=== PATIENT | female | born 1935 | race African-American/Black ===

== ENCOUNTER 2017-10-20 18:40 | Inpatient (IN) ==
[2017-10-20] MEDS ORDERED: 0.9 % Sodium Chloride 1,000 ML IVC ONE (18:59)
[2017-10-20 20:10] LABS: Basophils # 0.1 K/mcL (0.0-0.2); Basophils % 0.5 %; Eosinophils # 0.1 K/mcL (0.0-0.6); Immature Granulocytes % 0.5 % (0-4); Lymphocytes # 1.3 K/mcL (0.6-4.6); Lymphocytes % 8.9 %; Mean Corpuscular HGB Conc 33.3 g/dL (31.6-35.5); Mean Corpuscular Hemoglobin 31.8 pg (28.0-33.3); Mean Corpuscular Volume 95.3 fL (83.0-100.0); Mean Platelet Volume 9.1 fL (9.4-12.4); Monocytes # 0.8 K/mcL (0.0-1.3); Monocytes % 5.2 %; Neutrophils # 12.2 K/mcL (1.6-8.9); Platelet Count 208 K/mcL (140-400); Red Blood Count 4.72 M/mcL (3.82-4.97); Red Cell Distribution Width 13.3 % (11.5-14.5); Segmented Neutrophils % 83.9 %
[2017-10-20 20:17] LABS: INR 1.1; Prothrombin Time 12.3 Seconds (9.4-12.1)
--- NOTE | 2017-10-20 20:17 | Emergency Department Note ---
Disposition Clinical Impression: Fall Qualifiers: Encounter type: initial encounter Qualified Code(s): W19.XXXA - Unspecified fall, initial encounter Closed left hip fracture Qualifiers: Encounter type: initial encounter Qualified Code(s): S72.002A - Fracture of unspecified part of neck of left femur, initial encounter for closed fracture UTI (urinary tract infection) Qualifiers: Urinary tract infection type: site unspecified Hematuria presence: without hematuria Qualified Code(s): N39.0 - Urinary tract infection, site not specified Disposition: Admitted As Inpatient Condition: Good Referrals: Paradise Urena MD [Primary Care Provider] - Forms: ED Satisfaction Letter, Work/School Release Time of Disposition: 20:54 General Adult HPI - General Chief complaint: ED General Medical Stated complaint: shaking on right side. Time Seen by Provider: 10/20/17 18:45 Source: family, EMS Limitations: altered mental status, other (dementia) Nursing Notes Reviewed: Yes Vital Signs Reviewed: Yes - History of Present Illness HPI Narrative: 82 year old female who lives at home with her who also has dementia and she has severe dementia and is non ambulatory due to fall risk and is not on blood thinners. Daughter at [employer] who is the main historian states that she was found down and janis was only down for 3 hours 2p-5p and she has a histroy fo seizure. Her fall was from yesterda and since then she ferguson snot want to put pressure on her feet when they stand her and curls up legs and feet and doesnt want to walk or help move herself. PAtient also now has been starting with tremors on the right side and they are unsure if she is having recurrent seizures. Kathy benson and follows with Dr. Galeano neurology and has not missed any dose. Pain Scale: 0 - Related Data Home Medications Medication Instructions Recorded Confirmed Donepezil [Aricept] 10 mg PO BID #0 10/25/14 10/20/17 Omeprazole [PriLOSEC] 40 mg PO BID #0 10/25/14 10/20/17 Quetiapine Fumarate [Seroquel] 50 mg PO BID 10/25/14 10/20/17 Furosemide [Lasix] 20 mg PO DAILY 08/04/15 10/20/17 Phenytoin ER [Dilantin ER] 300 mg PO HS 10/20/17 10/20/17 Previous Rx's Medication Instructions Recorded Amlodipine [Norvasc] 10 mg PO DAILY #30 tablet 11/07/14 Allergies Allergy/AdvReac Type Severity Reaction Status Date / Time Penicillins Allergy Rash Verified 08/12/15 16:34 Constitutional: Denies: fever, chills, weakness, weight change Eyes: Denies: eye pain, eye discharge, vision change ENT ED: Denies: ear pain, throat pain, dental pain, hearing loss, epistaxis, congestion, dysphagia Cardiovascular: Denies: chest pain, palpitations, dyspnea on exertion, edema, syncope Respiratory: Denies: cough, dyspnea, wheezes, hemoptysis, stridor Gastrointestinal: Denies: abdominal pain, nausea, vomiting, diarrhea, constipation, hematemesis, melena, hematochezia Genitourinary: Denies: dysuria, frequency, hematuria, discharge Musculoskeletal: Reports: as per HPI. Denies: back pain, neck pain, arthralgia , myalgia Integumentary: Denies: rash, abrasion, lesions Neurological: Reports: other (tremors). Denies: headache, weakness, numbness, paresthesias, confusion, abnormal gait, vertigo Psychiatric: Denies: anxiety, depression, suicidal thoughts, homicidal thoughts , auditory hallucinations, visual hallucinations Endocrine: Denies: fatigue Hematological/Lymphatic: Denies: easy bleeding, easy bruising Allergic/Immunologic: Denies: facial swelling, urticaria Past Medical History - Past Medical History Medical history: Reports: dementia, hyperlipidemia, hypertension Surgical history: Reports: cholecystectomy, hysterectomy Psychiatric history: Reports: depression - Social History Smoking Status: Former smoker Smokeless Tobacco Status: No Alcohol use: Reports: none Drug use: Reports: none Physical Exam - General Limitations: altered mental status General appearance: in no apparent distress - Head Head exam: atraumatic, normocephalic, normal inspection - Eye Eye exam: Present: normal appearance, PERRL, EOMI - Expanded Eye Exam Pupils: Bilateral: reactive - ENT ENT exam: normal exam, normal oropharynx, mucous membranes moist - Expanded ENT Exam External ear exam: Present: normal external inspection Mouth exam: Present: normal external inspection Teeth exam: Present: normal inspection Throat exam: Present: normal inspection - Neck Neck exam: Present: normal inspection, full ROM, trachea midline - Chest Chest inspection: Present: normal inspection, symmetric chest wall rise - Respiratory Respiratory exam: Present: normal lung sounds bilaterally - Cardiovascular Cardiovascular exam: Present: regular rate, normal rhythm, normal heart sounds - Abdominal Exam Abdominal exam: Present: soft, Non-Tender. Absent: tenderness, distention, guarding, rebound, rigidity - Extremities Exam Extremities exam: Present: normal inspection, full ROM. Absent: tenderness, pedal edema - Expanded Upper Extremity Exam Shoulder exam: Present: normal inspection, full ROM Arm exam: Present: normal inspection, full ROM Elbow exam: Present: normal inspection, full ROM Forearm/Wrist exam: Present: normal inspection, full ROM Hand exam: Present: normal inspection, full ROM Vascular exam: Normal: capillary refill, radial pulse - Expanded Lower Extremity Exam Hip/Pelvis exam: Present: normal inspection, tenderness (left hip on palpation) Upper leg exam: Present: normal inspection, full ROM Knee exam: Present: normal inspection, full ROM Lower leg exam: Present: normal inspection, full ROM Ankle exam: Present: normal inspection, full ROM Foot/toe exam: Present: normal inspection, full ROM Neurovascular/Tendon exam: Absent: motor deficit, sensory deficit, tendon deficit - Back Exam Back exam: Present: normal inspection, full ROM. Absent: tenderness - Neurological Exam Neurological exam: Present: alert, other (neurological exam is difficult to assess secondary to dementia and inabiltiy to follows commands at baseline, although when left hip is palpated she curls up to with pain and states we are hurting her and the closes her eyes and starts to tremor again) - Expanded Neurological Exam Speech: Present: fluid speech Coma Scale Eye Opening: Spontaneous Coma Scale Motor Response: Obeys Commands Coma Scale Verbal Response: Oriented Coma Scale Total: 15 - Psychiatric Psychiatric exam: Present: normal affect, normal mood - Skin Skin exam: Present: warm, dry, intact, normal color Course Course Narrative: we will do focused trauma assessment with hip xr to rule out fracture. PAtient will be admitted to medicine. - Reevaluation(s) Reevaluation #1: updated patinet and family on results. WE will admit to medicine. Time: 20:54 - Consultations Consultation #1: discussed case with Dr. Casanova and he siobhan see in consult. Time: 20:53 Consultation #2: discussed case with Dr. Hunter and he will accept patinet for admission Time: 20:54 Vital Signs Temperature 98.8 F 10/20/17 18:48 Pulse Rate 85 10/20/17 18:48 Respiratory Rate 15 10/20/17 18:48 Blood Pressure 123/95 10/20/17 18:48 O2 Sat by Pulse Oximetry 94 10/20/17 18:48 Temperature 98.8 F 10/20/17 18:48 Pulse Rate 85 10/20/17 18:48 Respiratory Rate 15 10/20/17 18:48 Blood Pressure 123/95 10/20/17 18:48 O2 Sat by Pulse Oximetry 94 10/20/17 18:48 Oxygen Delivery Oxygen Delivery Room Air Medical Decision Making - Lab Data Result diagrams: 10/20/17 19:56 10/20/17 19:56 Lab Results 10/20/17 10/20/17 10/20/17 Range/Units 19:56 19:56 19:56 WBC 14.5 H (4.3-11.1) K/mcL RBC 4.72 (3.82-4.97) M/mcL Hgb 15.0 (11.5-15.4) g/dL Hct 45.0 H (35.3-44.9) % MCV 95.3 (83.0-100.0) fL MCH 31.8 (28.0-33.3) pg MCHC 33.3 (31.6-35.5) g/dL RDW 13.3 (11.5-14.5) % Plt Count 208 (140-400) K/mcL MPV 9.1 L (9.4-12.4) fL Immature Gran % 0.5 (0-4) % Seg Neutrophils % 83.9 % Lymphocytes % 8.9 % Monocytes % 5.2 % Eosinophils % 1.0 % Basophils % 0.5 % Neutrophils # 12.2 H (1.6-8.9) K/mcL Lymphocytes # 1.3 (0.6-4.6) K/mcL Monocytes # 0.8 (0.0-1.3) K/mcL Eosinophils # 0.1 (0.0-0.6) K/mcL Basophils # 0.1 (0.0-0.2) K/mcL PT 12.3 H (9.4-12.1) Seconds INR 1.1 Sodium (136-145) mEq/L Potassium (3.5-5.1) mEq/L Chloride (98-107) mEq/L Carbon Dioxide (23-29) mEq/L BUN (8-23) mg/dL Creatinine (0.60-1.20) mg/dL Est GFR ( Amer) (> 60) Est GFR (Non-Af Amer) (> 60) BUN/Creatinine Ratio (6-26) Glucose (70-105) mg/dL Calculated Osmolality (280-300) Calcium (8.6-10.3) mg/dL Phosphorus 2.9 (2.7-4.5) mg/dL Magnesium 2.2 (1.6-2.6) mg/dL Total Bilirubin (0.3-1.0) mg/dL Direct Bilirubin (0.0-0.2) mg/dL Indirect Bilirubin (0.0-1.2) mg/dL AST (13-39) Units/L ALT (7-52) Units/L Alkaline Phosphatase (34-104) Units/L Troponin I < 0.03 (< 0.04) ng/mL Serum Total Protein (6.4-8.9) g/dL Albumin (3.5-5.7) g/dL Globulin (2.4-3.5) g/dL Albumin/Globulin Ratio (1.1-2.2) Lipase 9 L (11-82) Units/L Urine Color (Yellow) Urine Clarity (Clear) Urine pH (5.0-8.0) pH Units Ur Specific [place] (1.010-1.025) Urine Protein (Neg-Trace) mg/dL Urine Glucose (UA) (Normal) mg/dL Urine Ketones (Negative) mg/dL Urine Blood (Negative) Urine Nitrite (Negative) Urine Bilirubin (Negative) Urine Urobilinogen (Normal) mg/dL Ur Leukocyte Esterase (Negative) Phenytoin (10.0-20.0) mcg/mL Ur Drug Screen Interp Ethyl Alcohol < 10 (Less than 10) mg/dL 10/20/17 10/20/17 10/20/17 Range/Units 19:56 20:44 20:44 WBC (4.3-11.1) K/mcL RBC (3.82-4.97) M/mcL Hgb (11.5-15.4) g/dL Hct (35.3-44.9) % MCV (83.0-100.0) fL MCH (28.0-33.3) pg MCHC (31.6-35.5) g/dL RDW (11.5-14.5) % Plt Count (140-400) K/mcL MPV (9.4-12.4) fL Immature Gran % (0-4) % Seg Neutrophils % % Lymphocytes % % Monocytes % % Eosinophils % % Basophils % % Neutrophils # (1.6-8.9) K/mcL Lymphocytes # (0.6-4.6) K/mcL Monocytes # (0.0-1.3) K/mcL Eosinophils # (0.0-0.6) K/mcL Basophils # (0.0-0.2) K/mcL PT (9.4-12.1) Seconds INR Sodium 144 (136-145) mEq/L Potassium 4.3 (3.5-5.1) mEq/L Chloride 108 H (98-107) mEq/L Carbon Dioxide 28 (23-29) mEq/L BUN 23 (8-23) mg/dL Creatinine 0.73 (0.60-1.20) mg/dL Est GFR ( Amer) > 60 (> 60) Est GFR (Non-Af Amer) > 60 (> 60) BUN/Creatinine Ratio 32 H (6-26) Glucose 143 H (70-105) mg/dL Calculated Osmolality 304 H (280-300) Calcium 9.3 (8.6-10.3) mg/dL Phosphorus (2.7-4.5) mg/dL Magnesium (1.6-2.6) mg/dL Total Bilirubin 0.7 (0.3-1.0) mg/dL Direct Bilirubin 0.1 (0.0-0.2) mg/dL Indirect Bilirubin 0.6 (0.0-1.2) mg/dL AST 31 (13-39) Units/L ALT 37 (7-52) Units/L Alkaline Phosphatase 200 H (34-104) Units/L Troponin I (< 0.04) ng/mL Serum Total Protein 7.2 (6.4-8.9) g/dL Albumin 4.1 (3.5-5.7) g/dL Globulin 3.1 (2.4-3.5) g/dL Albumin/Globulin Ratio 1.3 (1.1-2.2) Lipase (11-82) Units/L Urine Color Yellow (Yellow) Urine Clarity Cloudy A (Clear) Urine pH 6.0 (5.0-8.0) pH Units Ur Specific [place] 1.019 (1.010-1.025) Urine Protein 30 H (Neg-Trace) mg/dL Urine Glucose (UA) Normal (Normal) mg/dL Urine Ketones Trace H (Negative) mg/dL Urine Blood Negative (Negative) Urine Nitrite Negative (Negative) Urine Bilirubin Negative (Negative) Urine Urobilinogen Normal (Normal) mg/dL Ur Leukocyte Esterase Large H (Negative) Phenytoin 5.7 L (10.0-20.0) mcg/mL Ur Drug Screen Interp See Below Ethyl Alcohol (Less than 10) mg/dL
[2017-10-20 20:36] LABS: Alanine Aminotransferase 37 Units/L (7-52); Albumin 4.1 g/dL (3.5-5.7); Albumin/Globulin Ratio 1.3 (1.1-2.2); Alkaline Phosphatase 200 Units/L (34-104); Aspartate Amino Transferase 31 Units/L (13-39); BUN/Creatinine Ratio 32 (6-26); Bilirubin,Direct 0.1 mg/dL (0.0-0.2); Bilirubin,Indirect 0.6 mg/dL (0.0-1.2); Bilirubin,Total 0.7 mg/dL (0.3-1.0); Blood Urea Nitrogen 23 mg/dL (8-23); Calcium 9.3 mg/dL (8.6-10.3); Carbon Dioxide 28 mEq/L (23-29); Chloride 108 mEq/L (98-107); Globulin 3.1 g/dL (2.4-3.5); Glucose 143 mg/dL (70-105); Osmolality,Calculated 304 (280-300); Phenytoin (Dilantin) 5.7 mcg/mL (10.0-20.0); Potassium 4.3 mEq/L (3.5-5.1); Sodium 144 mEq/L (136-145); Total Protein 7.2 g/dL (6.4-8.9); eGFR For Non-African Americans > 60 (> 60)
[2017-10-20 20:38] LABS: Ethanol < 10 mg/dL (Less than 10); Lipase 9 Units/L (11-82); Magnesium 2.2 mg/dL (1.6-2.6); Phosphorous 2.9 mg/dL (2.7-4.5)
[2017-10-20 20:45] LABS: Troponin I < 0.03 ng/mL (< 0.04)
[2017-10-20] MEDS ORDERED: *HR* LORazepam 2 MG/ML VIAL IVP ONE (20:50)
[2017-10-20 20:55] LABS: Bilirubin,Urine Negative (Negative); Blood,Urine Negative (Negative); Clarity,Urine Cloudy (Clear); Color,Urine Yellow (Yellow); Glucose,Urine (UA) Normal (Normal); Ketones,Urine Trace mg/dL (Negative); Leukocyte Esterase,Urine Large (Negative); Nitrite,Urine Negative (Negative); Protein,Urine 30 mg/dL (Neg-Trace); Specific Gravity,Urine 1.019 (1.010-1.025); Urobilinogen,Urine Normal (Normal)
[2017-10-20 20:58] LABS: Bacteria,Urine Many per hpf (None-Few); Hyaline Casts,Urine None Seen per lpf (None-Few); RBC,Urine 0-3 per hpf (0-3); Squamous Epithelial Cell,Urine Many per lpf (None-Few); WBC,Urine TNTC per hpf (0-3)
[2017-10-20] MEDS ORDERED: Levofloxacin 750 MG/150 ML 750 MG/150 ML BAG IVPB ONE (21:04)
[2017-10-20 21:15] LABS: Amphetamine Screen,Urine Negative ng/mL (Cutoff=1000); Barbiturate Screen,Urine Negative ng/mL (Cutoff=200); Benzodiazepines Screen,Urine Negative ng/mL (Cutoff=200); Cannabinoid Screen,Urine Negative ng/mL (Cutoff = 50); Cocaine Screen,Urine Negative ng/mL (Cutoff= 300); Opiate Screen,Urine Negative ng/mL (Cutoff=300); Phencyclidine Screen,Urine Negative ng/mL (Cutoff=25)
[2017-10-21] MEDS ORDERED: Naloxone 0.4 MG/ML INJ IVP PRN (04:13)
[2017-10-21] MEDS ORDERED: Furosemide 20 MG TABLET PO PRN (04:18)
[2017-10-21] MEDS ORDERED: OXYCODONE Oral CONC 10 MG/0.5 ML ORAL.SYG SL PRN (04:21)
--- NOTE | 2017-10-21 04:28 | Internal Med History&Physical ---
Date of Encounter: 10/21/17 Time of Encounter: 02:45 Internal Medicine - H&P: HPI Chief complaint: Left acute displaced subcapital femoral neck fracture Admitted From: Home Plans for Post Hospital Care: Home History of present illness: Ms. Blevins is a 82 year old female Patient answering a few questions, has baseline dementia and family not available at bedside during my evaluation. History obtained from previous records. Patient and her live at home both have dementia. Recently patient was found down and likely down for about 3 hours. Patient does have a history of seizures. This fall occurred the day previous to admission and since the fall patient has been unwilling to put weight on her left leg with standing and instead curls her leg up and refuses to walk or help move herself. Patient is also had tremors on the right side and family was not sure if this was seizure activity. She takes Dilantin and is apparently not missed any doses. She is brought to the emergency room for further management. In the emergency room hip x-ray showed acute displaced subcapital left femoral neck fracture. Head CT showed no acute intracranial abnormality, chest x-ray showed no abnormalities. Lab work showed a white count of 14.5, and urinalysis showed large leukocyte esterase with 30 of protein but no blood and negative nitrites. Urine bacteria was many. Dr. Casanova of orthopedic surgery was called from the emergency room, and will see the patient in the morning. Patient is to be admitted for further management of her left femoral neck fracture. Past Med Surg Social Fam HX - Past Medical History Medical history: dementia, hyperlipidemia, hypertension, seizures Additional medical history: UTI, pneumonia Psychiatric history: depression - Past Surgical History Surgical History: cholecystectomy, hysterectomy - Social History Smoking Status: Former smoker Smokeless Tobacco Status: No Alcohol use: none Drug use: none - Family History Father Age at : 45 Cause of : heart attack Hx Family Cardiac Disorders: Yes (heart attack) Internal Medicine - H&P: Meds Donepezil [Aricept] 10 mg PO BID #0 10/25/14 [History] Omeprazole [PriLOSEC] 40 mg PO BID #0 10/25/14 [History] Quetiapine Fumarate [Seroquel] 50 mg PO BID 10/25/14 [History] Amlodipine [Norvasc] 10 mg PO DAILY #30 tablet 11/07/14 [Rx] Furosemide [Lasix] 20 mg PO DAILY PRN 08/04/15 [History] Phenytoin ER [Dilantin ER] 300 mg PO HS 10/20/17 [History] 3 Allergy/AdvReac Type Severity Reaction Status Date / Time Penicillins Allergy Rash Verified 08/12/15 16:34 All Systems PM: A 10-system review of systems was performed and is negative for pertinent findings except as documented above in the HPI. - Constitutional Vitals: Temp Pulse Resp BP Pulse Ox 99.1 F 100 18 143/85 98 10/21/17 02:27 10/21/17 02:27 10/21/17 02:27 10/21/17 02:27 10/21/17 02:27 General appearance: Present: no acute distress. Absent: cooperative, answers questions appropriately Exam: Patient did not answer questions, and was very sleepy for exam. Did follow some commands such as squeezing fingers and open eyes - Head Head exam: Present: normal inspection - Eye Eye exam: Present: normal appearance - Respiratory Respiratory exam: Present: CTAB. Absent: chest wall tenderness, respiratory distress, wheezes - Cardiovascular Cardiovascular exam: Present: RRR. Absent: diastolic murmur, systolic murmur - GI/Abdominal GI/Abdominal exam: Present: normal bowel sounds, soft. Absent: tenderness - Extremities Exam Extremities exam: Present: warm, radial pulses palpable and symmetrical. Absent : tenderness Additional comments: No apparent tenderness even with palpation over the left hip - Neurological Exam Neurological exam: Present: altered. Absent: alert, oriented X3 - Skin Skin exam: Present: dry, normal color, warm Internal Med - H&P Results - Labs CBC & Chem 7: 10/20/17 19:56 10/20/17 19:56 - Assessment and plan (1) Closed left hip fracture Current Visit: Yes Status: Acute Assessment and plan: As seen on hip x-ray patient has an acute displaced subcapital left femoral neck fracture. Orthopedic surgery called from the emergency room and will consult on patient in the morning Nothing by mouth after midnight Likely surgery in the morning A.m. labs Type and screen PT/INR EKG in the morning Qualifiers: Encounter type: initial encounter Qualified Code(s): S72.002A - Fracture of unspecified part of neck of left femur, initial encounter for closed fracture (2) Fall Current Visit: Yes Status: Acute Assessment and plan: Unclear what caused the patient to fall, she has a history of seizures and has been found to have a urinary tract infection. She is a history of dementia as well. Fall precautions Sitter at bedside Qualifiers: Encounter type: initial encounter Qualified Code(s): W19.XXXA - Unspecified fall, initial encounter (3) UTI (urinary tract infection) Current Visit: No Status: Acute Assessment and plan: Patient's urinalysis showed large leukocyte esterase, with many bacteria and 30 of protein. She was given a dose of Levaquin in the emergency room. Continue antibiotic therapy Follow-up urine culture Qualifiers: Urinary tract infection type: acute cystitis Hematuria presence: without hematuria Qualified Code(s): N30.00 - Acute cystitis without hematuria (4) Dementia Current Visit: No Status: Acute Assessment and plan: Chronic continue home medications. Qualifiers: Qualified Code(s): F03.90 - Unspecified dementia without behavioral disturbance (5) DVT prophylaxis Current Visit: No Status: Acute Assessment and plan: SCDs - Time Spent With Patient Total time spent is greater than 50% in coordination of care (as documented) at patient's floor/unit and/or counseling patient: Greater than 35 minutes
[2017-10-21 06:44] LABS: Hematocrit 41.3 % (35.3-44.9); Hemoglobin 13.6 g/dL (11.5-15.4); Mean Corpuscular HGB Conc 32.9 g/dL (31.6-35.5); Mean Corpuscular Hemoglobin 31.3 pg (28.0-33.3); Mean Corpuscular Volume 95.2 fL (83.0-100.0); Mean Platelet Volume 10.1 fL (9.4-12.4); Platelet Count 201 K/mcL (140-400); Red Blood Count 4.34 M/mcL (3.82-4.97); Red Cell Distribution Width 13.4 % (11.5-14.5)
[2017-10-21 06:46] LABS: INR 1.1; Prothrombin Time 12.3 Seconds (9.4-12.1)
[2017-10-21 06:58] LABS: BUN/Creatinine Ratio 32 (6-26); Blood Urea Nitrogen 17 mg/dL (8-23); Calcium 8.9 mg/dL (8.6-10.3); Carbon Dioxide 24 mEq/L (23-29); Chloride 107 mEq/L (98-107); Glucose 98 mg/dL (70-105); Osmolality,Calculated 294 (280-300); Potassium 3.8 mEq/L (3.5-5.1); Sodium 141 mEq/L (136-145); eGFR For Non-African Americans > 60 (> 60)
[2017-10-21] MEDS: amLODIPine 5 MG TABLET PO SCH (08:38)
--- NOTE | 2017-10-21 09:02 | Orthopedic Consult Note ---
Date of Encounter: 10/21/17 Time of Encounter: 08:20 Assessment and Plan (1) Closed left hip fracture Current Visit: Yes Status: Acute Xrays showed acute, displaced subcapital left femoral neck fracture. Discussed case with Dr. Casanova. This fracture would typically require surgical intervention (hemiarthroplasty) however this patient has dementia and is nonambulatory. Per documentation, the daughter that was with her last night did not want to proceed with surgery. Family is not present in room this morning. Will try to contact later today to review r/b/a and confirm they do not want surgery. Will plan for no surgical intervention at this time. Recommend bed to chair transfers. NWB. Ice to left hip as needed. UPDATE 15:30- spoke with daughter Dang Burks about the r/b/a of surgery. Besides being a poor surgical candidate there would be a high risk of chronic hip dislocations if proceed with surgery. The biggest benefit of the surgery would be to improve pain and comfort. She expressed understanding and all questions were answered. Hospitalist was also bedside and states plan is to get hospice on board which will cover the pain control. Daughter in agreement to NOT proceed with surgery. Orthopedics will sign off at this time but please call with any future concerns. Qualifiers: Qualified Code(s): S72.002A - Fracture of unspecified part of neck of left femur, initial encounter for closed fracture History of Present Illness Chief complaint: left hip pain HPI: Ms. Blevins is a 82 year old female who presented to the ER yesterday with apparent left hip pain. She does have h/o dementia and seizures. She was found on the floor yesterday, fall was unwitnessed. Patient is typically nonambulatory. Family was not present for exam this morning, history comes from nurse and previous documentation. Past Med Surg Social Fam HX - Past Medical History Medical history: dementia, hyperlipidemia, hypertension, seizures Additional medical history: UTI, pneumonia Psychiatric history: depression - Past Surgical History Surgical History: cholecystectomy, hysterectomy - Social History Smoking Status: Former smoker Smokeless Tobacco Status: No Alcohol use: none Drug use: none - Family History Father Age at : 45 Cause of : heart attack Hx Family Cardiac Disorders: Yes (heart attack) Medications and Allergies Donepezil [Aricept] 10 mg PO BID #0 10/25/14 [History] Omeprazole [PriLOSEC] 40 mg PO BID #0 10/25/14 [History] Quetiapine Fumarate [Seroquel] 50 mg PO BID 10/25/14 [History] Amlodipine [Norvasc] 10 mg PO DAILY #30 tablet 11/07/14 [Rx] Furosemide [Lasix] 20 mg PO DAILY PRN 08/04/15 [History] Phenytoin ER [Dilantin ER] 300 mg PO HS 10/20/17 [History] 3 Allergy/AdvReac Type Severity Reaction Status Date / Time Penicillins Allergy Rash Verified 08/12/15 16:34 ROS unobtainable: due to mental status All Systems Reviewed: The remainder of the systems were reviewed and are negative Physical Exam - Constitutional Vitals: Temp Pulse Resp BP Pulse Ox 98.3 F 82 15 123/87 100 10/21/17 06:43 10/21/17 06:43 10/21/17 06:43 10/21/17 06:43 10/21/17 06:43 - Hip left Tenderness with palpation: lateral (LLE held in flexed position, pain response to gentle palpation of anterior and lateral left hip, patient using hand to rub over hip with moans. no visible ecchymosis, erythema or open wounds or lesions. ROM restricted. patient unable to follow commands. ) Results - Labs Result Diagrams: 10/21/17 05:24 10/21/17 05:24 Labs: Abnormal lab results WBC 15.2 K/mcL (4.3-11.1) H 10/21/17 05:24 Neutrophils # 12.2 K/mcL (1.6-8.9) H 10/20/17 19:56 PT 12.3 Seconds (9.4-12.1) H 10/21/17 05:24 Creatinine 0.53 mg/dL (0.60-1.20) L 10/21/17 05:24 BUN/Creatinine Ratio 32 (6-26) H 10/21/17 05:24 Alkaline Phosphatase 200 Units/L (34-104) H 10/20/17 19:56 Lipase 9 Units/L (11-82) L 10/20/17 19:56 Urine Clarity Cloudy (Clear) A 10/20/17 20:44 Urine Protein 30 mg/dL (Neg-Trace) H 10/20/17 20:44 Urine Ketones Trace mg/dL (Negative) H 10/20/17 20:44 Ur Leukocyte Esterase Large (Negative) H 10/20/17 20:44 Urine Microscopic WBC TNTC per hpf (0-3) H 10/20/17 20:44 Ur Squamous Epith Cells Many per lpf (None-Few) H 10/20/17 20:44 Urine Bacteria Many per hpf (None-Few) H 10/20/17 20:44 Phenytoin 5.7 mcg/mL (10.0-20.0) L 10/20/17 19:56 H & H 10/21/17 Range/Units 05:24 Hgb 13.6 (11.5-15.4) g/dL Hct 41.3 (35.3-44.9) % All other labs normal. - Diagnostic results Hip x-ray: report reviewed, image reviewed Consult Discharge Plan - Plan Referrals: Paradise Urena MD [Primary Care Provider] - - Attending Attestation Case and plan of care discussed with supervising physician who was available for all aspects of care.
--- NOTE | 2017-10-21 15:00 | Internal Med Progress Note ---
<Niya Caba - Last Filed: 10/21/17 15:30> Hospitalist Progress Note - Encounter Date of Encounter: 10/21/17 Time of Encounter: 14:58 - Subjective Interval History: Ms. Blevins is an 82 y/o female with PMH of dementia and seizures presents to [facility] for a fall and left hip fracture. Today patient is arousable, not alert or oriented, mumbles inappropriately. Patient is not on any blood thinners. Altered so could not get appropriate ROS. Per recent neurology visit patient is chair bound, has advancing dementia and stable seizures. - Exam Vitals: Temp Pulse Resp BP Pulse Ox 99.2 F 88 14 131/84 94 10/21/17 11:20 10/21/17 11:20 10/21/17 11:20 10/21/17 11:20 10/21/17 11:20 Exam: GEN: Ill appearing thin female in no acute distress on room air, A&Ox0, arousable, will open eyes and mumble words. HEENT: atraumatic CV: RRR, no murmurs, no JVD RESP: CTAB, no wheezes, rales, ABD: palpation does not elicit pain, no organomegaly : fagan present MSK: Hip does not elicit pain to palpation VASC: No edema, radial and dorsalis pedis pulses 2/4 - Assessment and Plan (1) Closed left hip fracture Current Visit: Yes Status: Acute Assessment and Plan: Ortho consulted and advise that femoral neck fracture would typically require surgical intervention but she is not a good candidate. Family declined surgery as detailed in goals of care. (2) Fall Current Visit: Yes Status: Acute Assessment and Plan: Unwitnessed fall of unknown etiology from chair or standing - considered EEG but after speaking with family they declined - minimum of 3 hours before found - thus ordered CK-MB - EKG - wnl (3) UTI (urinary tract infection) Current Visit: Yes Status: Acute Assessment and Plan: possible precipitating factor of fall- UA shows many WBC, bacteria, trace ketones and postive esterase but also many squamous cells - continue Levaquin (4) Advanced dementia Current Visit: No Status: Chronic Assessment and Plan: Dementia type unclear but baseline known to be chair bound and verbal but not communicative (5) Goals of care, counseling/discussion Current Visit: Yes Status: Acute Assessment and Plan: I spoke with patients daughters' Dang Burks and Cedrick Blevins (second by phone) as there is no designated POA- they are in agreement with consulting palliative or hospice care. They state that she needs "full care" and would like to think about hospice in home or care home. They agree that code status is DNR CCA DNI. They do not wish to have surgery. They decline an EEG and wish to follow but with her neurologist as outpatient. Ortho was part of conversation and agrees. - Palliative care consulted and discussed with Erum Tavera - they will see DVT Prophylaxis: Lovenox SQ - Summary of Assessment and Plan Summary of Assessment and Plan: Pursuing palliative care - Time Spent with Patient Total time spent is greater than 50% in coordination of care (as documented) at patient's floor/unit and/or counseling patient: Greater than 35 minutes Plan of Care Discussed with: family Internal Medicine: Result - Labs CBC & Chem 7: 10/21/17 05:24 10/21/17 05:24 Labs: Short CBC 10/21/17 Range/Units 05:24 WBC 15.2 H (4.3-11.1) K/mcL Hgb 13.6 (11.5-15.4) g/dL Hct 41.3 (35.3-44.9) % Plt Count 201 (140-400) K/mcL BMP 10/21/17 05:24 Sodium 141 Potassium 3.8 Chloride 107 Carbon Dioxide 24 BUN 17 Creatinine 0.53 L Glucose 98 Calcium 8.9 - ABG Interpretation ABG results: PT/INR, D-dimer PT 12.3 Seconds (9.4-12.1) H 10/21/17 05:24 - VTE Documentation of Mechanical Device: Intermittent pneumatic compression device Consult Discharge Plan - Plan Referrals: Paradise Urena MD [Primary Care Provider] - <Driss Delgado - Last Filed: 10/21/17 17:37> Hospitalist Progress Note - Encounter Date of Encounter: 10/21/17 - Exam Vitals: Temp Pulse Resp BP Pulse Ox 99.5 F 95 16 134/68 95 10/21/17 15:39 10/21/17 15:39 10/21/17 15:39 10/21/17 15:39 10/21/17 15:39 - Time Spent with Patient Total time spent is greater than 50% in coordination of care (as documented) at patient's floor/unit and/or counseling patient: Internal Medicine: Result - Labs CBC & Chem 7: 10/21/17 05:24 10/21/17 05:24 - ABG Interpretation ABG results: PT/INR, D-dimer PT 12.3 Seconds (9.4-12.1) H 10/21/17 05:24 - Attending Attestation I examined this patient and my medical decision-making was reviewed with the Resident Physician Dr. Caba. I agree with the documented findings, disposition and treatment plan as described except to the extent set forth below. Ms. Blevins is a 82 year old female with PMH of dementia, hyperlipidemia, hypertension, seizures pt was brought into ER by family stating pt had a fall at home and down for [address] showed no acute intracranial abnormality, chest x-ray showed no abnormalities. Hip x-ray showed acute displaced subcapital left femoral neck fracture. Now pt resting comfortably. She is sleepy and demented Gen: Sleepy Chest: Diminished BS Heart: S1S2+ Ext: moderate tenderness in left, no swelling / no laceration a/p 1. Acute fall with acute displaced subcapital left femoral neck fracture Orhto on board family do not wanted to proceed with surgery palliative care consulted 2. ?? acute on chronic seizure will ask family about further work up - EEG cont home meds for now 3. Advanced dementia on Haldol PRN for agitation <Niya Caba - Last Filed: 10/21/17 15:30> (1) Closed left hip fracture Qualifiers: Encounter type: initial encounter Qualified Code(s): S72.002A - Fracture of unspecified part of neck of left femur, initial encounter for closed fracture (2) Fall Qualifiers: Encounter type: initial encounter Qualified Code(s): W19.XXXA - Unspecified fall, initial encounter (3) UTI (urinary tract infection) Qualifiers: Urinary tract infection type: site unspecified Hematuria presence: without hematuria Qualified Code(s): N39.0 - Urinary tract infection, site not specified
--- NOTE | 2017-10-21 17:03 | Palliative - Consult Note ---
Date of Encounter: 10/21/17 Time of Encounter: 17:00 - Assessment and Plan (1) Left hip pain Current Visit: Yes Status: Acute Assessment and plan: Continue Oxycodone as ordered and monitor. Does not appear she has had this since admission. (2) Constipation Current Visit: Yes Status: Acute Assessment and plan: Will begin on [place] r/t increased immobility and likely need for opioids for comfort. Monitor BM's Qualifiers: Constipation type: unspecified constipation type Qualified Code(s): K59.00 - Constipation, unspecified (3) Closed left hip fracture Current Visit: Yes Status: Acute Assessment and plan: Orthopedic notes reviewed. Not good surgical candidate. Qualifiers: Encounter type: initial encounter Qualified Code(s): S72.002A - Fracture of unspecified part of neck of left femur, initial encounter for closed fracture (4) Goals of care, counseling/discussion Current Visit: Yes Status: Acute Assessment and plan: Met with daughter Julianna. Patient has never completed HCPOA and also has dementia. Other daughter Cedrick resides in [place]. Julianna desires hospice care enrollment upon discharge - however, there is no payment source for ECF, and there is not enough care providers in the home at this point. They have never applied for Medicaid and not sure if pt would qualify. Julianna discussed possible back home with current home health, but I stated concern over her increased symptom management and other support hospice could provide in the home. Julianna to speak with her sister this weekend to discuss these options. Julianna working Tuesday until afternoon - we will meet with her when she can arrive. Code status currently DNR/DNI - expect transition to comfort care only upon discharge. Called and discussed case with Dr. Caba. Palliative-CN HPI - Data of Consult Consult date: 10/21/17 Requesting Physician: Genaro Hunter MD Primary Care Provider: Paradise Urena MD - Consult Narrative History of present illness: Ms. Blevins is a 82 year old female with a history of dementia who presented after fall at home with left hip pain. She resides with , who also has dementia, and has daughter close by who works. She has [employer] in place. Daughter at bedside states she has been in good health except for the dementia. X-ray on admission demonstrated Acute displaced subcapital left femoral neck fracture and osteoarthritis of bilateral hips. Information obtained from chart review and daughter at bedside. Upon my visit, she is sleeping soundly and does not awaken during my assessment , except for grimacing when I repositioned leg. Sitter at bedside. Resp appear easy and regular. Daughter states that she has appeared comfortable. CC: Genaro Hunter MD Past Med Surg Social Fam HX - Past Medical History Medical history: dementia, hyperlipidemia, hypertension, seizures Additional medical history: UTI, pneumonia Psychiatric history: depression - Past Surgical History Surgical History: cholecystectomy, hysterectomy - Social History Smoking Status: Former smoker Smokeless Tobacco Status: No Alcohol use: none Drug use: none - Family History Father Age at : 45 Cause of : heart attack Hx Family Cardiac Disorders: Yes (heart attack) Medications and Allergies Donepezil [Aricept] 10 mg PO BID #0 10/25/14 [History] Omeprazole [PriLOSEC] 40 mg PO BID #0 10/25/14 [History] Quetiapine Fumarate [Seroquel] 50 mg PO BID 10/25/14 [History] Amlodipine [Norvasc] 10 mg PO DAILY #30 tablet 11/07/14 [Rx] Furosemide [Lasix] 20 mg PO DAILY PRN 08/04/15 [History] Phenytoin ER [Dilantin ER] 300 mg PO HS 10/20/17 [History] 3 Allergy/AdvReac Type Severity Reaction Status Date / Time Penicillins Allergy Rash Verified 08/12/15 16:34 ROS unobtainable: due to mental status Palliative Care-Exam - Constitutional Vitals: Temp Pulse Resp BP Pulse Ox 99.5 F 95 16 134/68 95 10/21/17 15:39 10/21/17 15:39 10/21/17 15:39 10/21/17 15:39 10/21/17 15:39 General appearance: Present: no acute distress - Head Head Exam: Present: normal inspection, normocephalic - Eye Eye exam: Present: normal appearance, PERRL - Respiratory Respiratory exam: Present: decreased breath sounds, CTAB Additional comments: Shallow inspiratory effort - Cardiovascular Cardiovascular exam: Present: +S1, +S2 - GI/Abdominal Exam GI/Abdominal exam: Present: normal bowel sounds, soft - Extremities Exam Extremities exam: Present: normal capillary refill - Neurological Exam Additional comments: Patient sleeping sounding - slept through assessment - Skin Skin exam: Present: dry, normal color, warm Internal Medicine - CN: Reslt - Labs CBC & Chem 7: 10/21/17 05:24 10/21/17 05:24 - ABG Interpretation ABG results: PT/INR, D-dimer PT 12.3 Seconds (9.4-12.1) H 10/21/17 05:24 Consult Discharge Plan - Plan Referrals: Paradise Urena MD [Primary Care Provider] - Palliative Quality Palliative Quality: Screen for Code Status: Yes, Screen for Goals of Care: Yes, Screen for Pain: Yes, If Pain Regimen Started, Initiate Bowel Regimen: NA, Screen for Nausea/Vomitting: Yes Code Status: 10/21/17 15:37 CODE [Resuscitation Status: Active] [RES] Routine Comment: per alyssa Burks & Cedrick Blevins Resuscitation Status: [id number]
[2017-10-21] MEDS: *HR* Enoxaparin 40 MG/0.4 ML SYRINGE SQ SCH (17:29)
--- NOTE | 2017-10-21 17:38 | Electrocardiograph Report ---
[place] [address] Test Date: 2017-10-21 Pat Name: Gemini Blevins Department: 114 Room: [facility] Gender: F Account Manager Sales Representative: JOSE MANUEL : 1935 Requested By: Abner Damon Order Number: [id number] Reading MD: Brea Yanez Measurements Intervals [place] Rate: 84 P: 78 WY: 188 QRS: 5 QRSD: 89 T: 61 QT: 331 QTc: 371 Interpretive Statements SINUS RHYTHM PROBABLE SEPTAL MYOCARDIAL INFARCTION, PROBABLY OLD Electronically Signed On 10-21-2017 17:37:10 EDT by Brea Yanez
[2017-10-21] MEDS: Sennosides/Docusate Sodium TABLET PO SCH (20:26)
[2017-10-21] MEDS: Levofloxacin 750 MG/150 ML 750 MG/150 ML BAG IVPB SCH (20:28)
[2017-10-21] MEDS: Phenytoin Oral Susp 100 MG/4 ML UDC PO SCH (23:29)
[2017-10-22 07:45] LABS: Basophils # 0.1 K/mcL (0.0-0.2); Basophils % 0.7 %; Eosinophils # 0.4 K/mcL (0.0-0.6); Eosinophils % 3.3 %; Hematocrit 38.5 % (35.3-44.9); Hemoglobin 12.9 g/dL (11.5-15.4); Immature Granulocytes % 0.6 % (0-4); Immature Platelets 2.4 % (1.1-6.1); Lymphocytes # 1.5 K/mcL (0.6-4.6); Lymphocytes % 11.9 %; Mean Corpuscular HGB Conc 33.5 g/dL (31.6-35.5); Mean Corpuscular Hemoglobin 31.2 pg (28.0-33.3); Mean Platelet Volume 9.9 fL (9.4-12.4); Monocytes % 7.4 %; Neutrophils # 9.8 K/mcL (1.6-8.9); Platelet Count 209 K/mcL (140-400); Red Blood Count 4.14 M/mcL (3.82-4.97); Red Cell Distribution Width 13.5 % (11.5-14.5); Segmented Neutrophils % 76.1 %
[2017-10-22 08:06] LABS: BUN/Creatinine Ratio 34 (6-26); Blood Urea Nitrogen 19 mg/dL (8-23); Calcium 8.5 mg/dL (8.6-10.3); Carbon Dioxide 24 mEq/L (23-29); Chloride 108 mEq/L (98-107); Glucose 96 mg/dL (70-105); Osmolality,Calculated 292 (280-300); Potassium 3.5 mEq/L (3.5-5.1); Sodium 140 mEq/L (136-145); eGFR For Non-African Americans > 60 (> 60)
[2017-10-22] MEDS: amLODIPine 5 MG TABLET PO SCH (08:08)
[2017-10-22] MEDS: Sennosides/Docusate Sodium TABLET PO SCH (08:08)
--- NOTE | 2017-10-22 09:33 | Internal Med Progress Note ---
<Niya Caba - Last Filed: 10/22/17 11:38> Hospitalist Progress Note - Encounter Date of Encounter: 10/22/17 Time of Encounter: 11:38 - Subjective Interval History: Ms. Blevins is an 82 y/o female with PMH of dementia and seizures presents to [facility] for a fall and left hip fracture. Patient remains arousable but not alert or oriented, She mumbles inappropriately. Verbal but not communicative. Per aid she appears to be in pain when moved for washing. Bed bound but sitting up and eating well. Altered so could not get appropriate ROS. - Exam Vitals: Temp Pulse Resp BP Pulse Ox 98.0 F 89 15 153/90 95 10/22/17 08:41 10/22/17 08:41 10/22/17 08:41 10/22/17 08:41 10/22/17 08:41 Exam: GEN: Ill appearing thin female in no acute distress on room air, A&Ox0, arousable, will open eyes and mumble words. HEENT: atraumatic CV: RRR, no murmurs, no JVD RESP: CTAB, no wheezes, rales, ABD: palpation does not elicit pain, no organomegaly : fagan present VASC: No edema, radial and dorsalis pedis pulses 2/4 - Assessment and Plan (1) Closed left hip fracture Current Visit: Yes Status: Acute Assessment and Plan: Ortho consulted and advise that femoral neck fracture would typically require surgical intervention but she is not a good candidate. Family declined surgery and palliative consulted (2) Fall Current Visit: Yes Status: Acute Assessment and Plan: Unwitnessed fall of unknown etiology from chair or standing - CT head in ED no acute abnormality - no apparent injures other than hip fracture - EEG - family declined - minimum of 3 hours before found - Creatinine kinase elevated at 378 but not high enough to diagnostic of rhabdomyolysis - urine is light tabatha - eating well Continue to monitor for clinical signs of rhabdomyolysis although unlikely considering presentation (3) UTI (urinary tract infection) Current Visit: Yes Status: Acute Assessment and Plan: Possible precipitating factor of fall: WBC 12.9 from 15.2 - UA on admit shows many WBC, bacteria, trace ketones and postive esterase but also many squamous cells - continue Levaquin (4) Advanced dementia Current Visit: No Status: Chronic Assessment and Plan: Dementia type unclear but baseline known to be chair bound and verbal but not communicative - possible behaviors in past but none on this admission - continue aricept and seroquel DVT Prophylaxis: Lovenox q24 hrs - Summary of Assessment and Plan Summary of Assessment and Plan: Discharge pending placement - Palliative team and social work consulted to assist family - Anticipate discharge early next week - Time Spent with Patient Total time spent is greater than 50% in coordination of care (as documented) at patient's floor/unit and/or counseling patient: 25 - 35 minutes Plan of Care Discussed with: nurse Internal Medicine: Result - Labs CBC & Chem 7: 10/22/17 07:07 10/22/17 07:07 Labs: Short CBC 10/22/17 Range/Units 07:07 WBC 12.9 H (4.3-11.1) K/mcL Hgb 12.9 (11.5-15.4) g/dL Hct 38.5 (35.3-44.9) % Plt Count 209 (140-400) K/mcL Neutrophils # 9.8 H (1.6-8.9) K/mcL BMP 10/22/17 07:07 Sodium 140 Potassium 3.5 Chloride 108 H Carbon Dioxide 24 BUN 19 Creatinine 0.56 L Glucose 96 Calcium 8.5 L - ABG Interpretation ABG results: PT/INR, D-dimer PT 12.3 Seconds (9.4-12.1) H 10/21/17 05:24 - VTE Documentation of Mechanical Device: Intermittent pneumatic compression device Consult Discharge Plan - Plan Referrals: Paradise Urena MD [Primary Care Provider] - <Driss Delgado - Last Filed: 10/22/17 14:23> Hospitalist Progress Note - Encounter Date of Encounter: 10/22/17 - Exam Vitals: Temp Pulse Resp BP Pulse Ox 98.0 F 106 17 154/81 96 10/22/17 11:41 10/22/17 11:41 10/22/17 11:41 10/22/17 11:41 10/22/17 11:41 - Time Spent with Patient Total time spent is greater than 50% in coordination of care (as documented) at patient's floor/unit and/or counseling patient: Internal Medicine: Result - Labs CBC & Chem 7: 10/22/17 07:07 10/22/17 07:07 Labs: Short CBC 10/22/17 Range/Units 07:07 WBC 12.9 H (4.3-11.1) K/mcL Hgb 12.9 (11.5-15.4) g/dL Hct 38.5 (35.3-44.9) % Plt Count 209 (140-400) K/mcL Neutrophils # 9.8 H (1.6-8.9) K/mcL BMP 10/22/17 07:07 Sodium 140 Potassium 3.5 Chloride 108 H Carbon Dioxide 24 BUN 19 Creatinine 0.56 L Glucose 96 Calcium 8.5 L - ABG Interpretation ABG results: PT/INR, D-dimer PT 12.3 Seconds (9.4-12.1) H 10/21/17 05:24 - Attending Attestation I examined this patient and my medical decision-making was reviewed with the Resident Physician Dr. Caba. I agree with the documented findings, disposition and treatment plan as described except to the extent set forth below. Ms. Blevins is a 82 year old female with PMH of dementia, hyperlipidemia, hypertension, seizures pt was brought into ER by family stating pt had a fall at home and down for [address] showed no acute intracranial abnormality, chest x-ray showed no abnormalities. Hip x-ray showed acute displaced subcapital left femoral neck fracture. Now pt resting comfortably. She is sleepy and demented Gen: Sleepy Chest: Diminished BS Heart: S1S2+ Ext: moderate tenderness in left, no swelling / no laceration a/p 1. Acute fall with acute displaced subcapital left femoral neck fracture Orhto on board family do not wanted to proceed with surgery palliative care consulted 2. ?? acute on chronic seizure will ask family about further work up - EEG cont home meds for now 3. Advanced dementia on Haldol PRN for agitation 4. Failure to thrive due to # 3 5. Moderate PCM Drip Pumper consulted <RosalesNiya M - Last Filed: 10/22/17 11:38> (1) Closed left hip fracture Qualifiers: Encounter type: initial encounter Qualified Code(s): S72.002A - Fracture of unspecified part of neck of left femur, initial encounter for closed fracture (2) Fall Qualifiers: Encounter type: initial encounter Qualified Code(s): W19.XXXA - Unspecified fall, initial encounter (3) UTI (urinary tract infection) Qualifiers: Urinary tract infection type: site unspecified Hematuria presence: without hematuria Qualified Code(s): N39.0 - Urinary tract infection, site not specified
[2017-10-22] MEDS: *HR* Enoxaparin 40 MG/0.4 ML SYRINGE SQ SCH (17:18)
[2017-10-22] MEDS: Phenytoin Oral Susp 100 MG/4 ML UDC PO SCH (20:49)
[2017-10-22] MEDS: Levofloxacin 750 MG/150 ML 750 MG/150 ML BAG IVPB SCH (20:56)
[2017-10-23 01:42] LABS: BUN/Creatinine Ratio 35 (6-26); Blood Urea Nitrogen 22 mg/dL (8-23); Calcium 8.2 mg/dL (8.6-10.3); Carbon Dioxide 27 mEq/L (23-29); Chloride 105 mEq/L (98-107); Glucose 102 mg/dL (70-105); Osmolality,Calculated 296 (280-300); Potassium 3.3 mEq/L (3.5-5.1); Sodium 141 mEq/L (136-145); eGFR For Non-African Americans > 60 (> 60)
[2017-10-23 02:39] LABS: Basophils # 0.1 K/mcL (0.0-0.2); Basophils % 0.6 %; Eosinophils # 0.5 K/mcL (0.0-0.6); Eosinophils % 4.2 %; Hematocrit 39.1 % (35.3-44.9); Immature Granulocytes % 0.5 % (0-4); Lymphocytes # 1.7 K/mcL (0.6-4.6); Lymphocytes % 14.1 %; Mean Corpuscular HGB Conc 33.2 g/dL (31.6-35.5); Mean Corpuscular Hemoglobin 31.8 pg (28.0-33.3); Mean Corpuscular Volume 95.6 fL (83.0-100.0); Mean Platelet Volume 10.8 fL (9.4-12.4); Monocytes # 1.1 K/mcL (0.0-1.3); Monocytes % 8.7 %; Neutrophils # 8.9 K/mcL (1.6-8.9); Platelet Count 221 K/mcL (140-400); Red Blood Count 4.09 M/mcL (3.82-4.97); Red Cell Distribution Width 13.2 % (11.5-14.5); Segmented Neutrophils % 71.9 %
[2017-10-23] MEDS: amLODIPine 5 MG TABLET PO SCH (07:40)
[2017-10-23] MEDS: Docusate Oral Soln 100 MG/10 ML UDC PO SCH (07:40)
[2017-10-23] MEDS ORDERED: Aminoglycoside Consult 1 EACH MC ONE (10:25)
--- NOTE | 2017-10-23 11:09 | Internal Med Progress Note ---
<Niya Caba - Last Filed: 10/23/17 11:07> Hospitalist Progress Note - Encounter Date of Encounter: 10/23/17 Time of Encounter: 11:08 - Subjective Interval History: Ms. Blevins is an 82 y/o female with PMH of dementia and seizures presents to [facility] for a fall and left hip fracture. Patient remains arousable but not alert or oriented, She mumbles inappropriately. Verbal but not communicative. Altered so could not get appropriate ROS. - Exam Vitals: Temp Pulse Resp BP Pulse Ox 98.5 F 76 16 125/74 95 10/23/17 07:04 10/23/17 07:04 10/23/17 07:04 10/23/17 07:04 10/23/17 07:04 Exam: GEN: cachetic female in no acute distress on room air, A&Ox0, arousable, will open eyes and mumble words. HEENT: atraumatic CV: RRR, no murmurs, no JVD RESP: CTAB, no wheezes, rales, ABD: palpation does not elicit pain, no organomegaly VASC: No edema, radial and dorsalis pedis pulses 2/4 - Assessment and Plan (1) Closed left hip fracture Current Visit: Yes Status: Acute Assessment and Plan: Ortho consulted and advise that femoral neck fracture would typically require surgical intervention but she is not a good candidate. Family declined surgery and palliative consulted (2) UTI (urinary tract infection) Current Visit: Yes Status: Acute Assessment and Plan: Possible precipitating factor of fall: WBC 12.4 from 15.2 - urine clture grew gram positive cocci : most likely staph saprophyticus, step agalactiae or enterococcus faecalis - continue Levaquin (3) Fall Current Visit: Yes Status: Acute Assessment and Plan: Unwitnessed fall of unknown etiology from chair or standing - CT head in ED no acute abnormality - no apparent injures other than hip fracture - EEG - family declined during goals of care discussion on Tuesday - rhabdomyolysis unlikely and ruled out (4) Advanced dementia Current Visit: No Status: Chronic Assessment and Plan: continue aricept and seroquel (5) Seizure Current Visit: No Status: Chronic Assessment and Plan: Family declined an EEG - continue phenytoin DVT Prophylaxis: Lovenox - Time Spent with Patient Total time spent is greater than 50% in coordination of care (as documented) at patient's floor/unit and/or counseling patient: Internal Medicine: Result - Labs CBC & Chem 7: 10/23/17 00:57 10/23/17 00:57 Labs: Short CBC 10/23/17 Range/Units 00:57 WBC 12.4 H (4.3-11.1) K/mcL Hgb 13.0 (11.5-15.4) g/dL Hct 39.1 (35.3-44.9) % Plt Count 221 (140-400) K/mcL Neutrophils # 8.9 (1.6-8.9) K/mcL BMP 10/23/17 00:57 Sodium 141 Potassium 3.3 L Chloride 105 Carbon Dioxide 27 BUN 22 Creatinine 0.63 Glucose 102 Calcium 8.2 L - ABG Interpretation ABG results: PT/INR, D-dimer PT 12.3 Seconds (9.4-12.1) H 10/21/17 05:24 - VTE Documentation of Mechanical Device: Intermittent pneumatic compression device Consult Discharge Plan - Plan Referrals: Paradise Urena MD [Primary Care Provider] - <Driss Delgado - Last Filed: 10/23/17 13:12> Hospitalist Progress Note - Encounter Date of Encounter: 10/23/17 - Exam Vitals: Temp Pulse Resp BP Pulse Ox 98.2 F 90 15 122/76 94 10/23/17 11:05 10/23/17 11:05 10/23/17 11:05 10/23/17 11:05 10/23/17 11:05 - Time Spent with Patient Total time spent is greater than 50% in coordination of care (as documented) at patient's floor/unit and/or counseling patient: Internal Medicine: Result - Labs CBC & Chem 7: 10/23/17 00:57 10/23/17 00:57 Labs: Short CBC 10/23/17 Range/Units 00:57 WBC 12.4 H (4.3-11.1) K/mcL Hgb 13.0 (11.5-15.4) g/dL Hct 39.1 (35.3-44.9) % Plt Count 221 (140-400) K/mcL Neutrophils # 8.9 (1.6-8.9) K/mcL BMP 10/23/17 00:57 Sodium 141 Potassium 3.3 L Chloride 105 Carbon Dioxide 27 BUN 22 Creatinine 0.63 Glucose 102 Calcium 8.2 L - ABG Interpretation ABG results: PT/INR, D-dimer PT 12.3 Seconds (9.4-12.1) H 10/21/17 05:24 - Attending Attestation I examined this patient and my medical decision-making was reviewed with the Resident Physician Dr. Caba. I agree with the documented findings, disposition and treatment plan as described except to the extent set forth below. Ms. Blevins is a 82 year old female with PMH of dementia, hyperlipidemia, hypertension, seizures pt was brought into ER by family stating pt had a fall at home and down for [address] showed no acute intracranial abnormality, chest x-ray showed no abnormalities. Hip x-ray showed acute displaced subcapital left femoral neck fracture. Now pt resting comfortably. She is more alert today. No events over night Gen: alert, awake and demented Chest: Diminished BS Heart: S1S2+ Ext: mild tenderness in left, no swelling / no laceration a/p 1. Acute fall with acute displaced subcapital left femoral neck fracture Orhto on board family do not wanted to proceed with surgery palliative care consulted 2. chronic seizure no active seizure cont home meds for now 3. Advanced dementia on Haldol PRN for agitation 4. Failure to thrive due to # 3 5. Moderate PCM Bender Machine Operator consulted 6. Vaginal yeast infection Diflucan x 1 dose <Niya Caba - Last Filed: 10/23/17 11:07> (1) Closed left hip fracture Qualifiers: Encounter type: initial encounter Qualified Code(s): S72.002A - Fracture of unspecified part of neck of left femur, initial encounter for closed fracture (2) UTI (urinary tract infection) Qualifiers: Urinary tract infection type: site unspecified Hematuria presence: without hematuria Qualified Code(s): N39.0 - Urinary tract infection, site not specified (3) Fall Qualifiers: Encounter type: initial encounter Qualified Code(s): W19.XXXA - Unspecified fall, initial encounter
[2017-10-23] MEDS ORDERED: Potassium Chloride Elixir 20 MEQ/15 ML UDC PO ONE (11:54)
[2017-10-23] MEDS ORDERED: Vancomycin 1 EACH in 0.9 % Sodium Chloride 250 ML IVPB SCH (12:00)
[2017-10-23] MEDS ORDERED: Fluconazole 100 MG TABLET PO ONE ×2 (12:30→16:30)
[2017-10-23] MEDS ORDERED: 0.9 % Sodium Chloride 1,000 ML IVC SCH (13:15)
[2017-10-23] MEDS: *HR* Enoxaparin 40 MG/0.4 ML SYRINGE SQ SCH (18:12)
[2017-10-23] MEDS: Phenytoin Oral Susp 100 MG/4 ML UDC PO SCH (21:39)
[2017-10-24 01:28] LABS: Basophils # 0.1 K/mcL (0.0-0.2); Basophils % 0.8 %; Eosinophils # 0.5 K/mcL (0.0-0.6); Eosinophils % 4.3 %; Hematocrit 34.6 % (35.3-44.9); Hemoglobin 11.7 g/dL (11.5-15.4); Immature Granulocytes % 0.4 % (0-4); Lymphocytes # 2.3 K/mcL (0.6-4.6); Mean Corpuscular HGB Conc 33.8 g/dL (31.6-35.5); Mean Corpuscular Hemoglobin 31.5 pg (28.0-33.3); Mean Platelet Volume 9.7 fL (9.4-12.4); Monocytes % 9.2 %; Neutrophils # 6.7 K/mcL (1.6-8.9); Platelet Count 203 K/mcL (140-400); Red Blood Count 3.72 M/mcL (3.82-4.97); Red Cell Distribution Width 13.2 % (11.5-14.5); Segmented Neutrophils % 63.3 %
[2017-10-24 01:49] LABS: BUN/Creatinine Ratio 38 (6-26); Blood Urea Nitrogen 18 mg/dL (8-23); Carbon Dioxide 25 mEq/L (23-29); Chloride 108 mEq/L (98-107); Glucose 105 mg/dL (70-105); Osmolality,Calculated 290 (280-300); Potassium 3.6 mEq/L (3.5-5.1); Sodium 139 mEq/L (136-145); eGFR For Non-African Americans > 60 (> 60)
[2017-10-24] MEDS: amLODIPine 5 MG TABLET PO SCH (07:55)
[2017-10-24] MEDS: Docusate Oral Soln 100 MG/10 ML UDC PO SCH (07:55)
--- NOTE | 2017-10-24 09:58 | Palliative Progress Note ---
Date of Encounter: 10/24/17 Time of Encounter: 09:30 - Assessment and plan (1) Left hip pain Current Visit: Yes Status: Acute Assessment and plan: She has Oxycodone available PRN - has not required. (2) Constipation Current Visit: Yes Status: Acute Assessment and plan: Last BM documented on 10/22. MOnitor and add bowel regimen if needed. Qualifiers: Constipation type: unspecified constipation type Qualified Code(s): K59.00 - Constipation, unspecified (3) Closed left hip fracture Current Visit: Yes Status: Acute Qualifiers: Encounter type: initial encounter Qualified Code(s): S72.002A - Fracture of unspecified part of neck of left femur, initial encounter for closed fracture (4) Goals of care, counseling/discussion Current Visit: Yes Status: Acute Assessment and plan: Awaiting family to arrive to further discuss discharge plan. Daughter supposed to come in around 1430 today when she gets off of work. Complicated discharge with limited options for family. Will f/u this afternoon. - Time Spent With Patient Total time spent is greater than 50% in coordination of care (as documented) at patient's floor/unit and/or counseling patient: 25 - 35 minutes - Constitutional Vitals: Abnormal lab results RBC 3.72 M/mcL (3.82-4.97) L 10/24/17 01:03 Hct 34.6 % (35.3-44.9) L 10/24/17 01:03 PT 12.3 Seconds (9.4-12.1) H 10/21/17 05:24 Chloride 108 mEq/L (98-107) H 10/24/17 01:03 Creatinine 0.48 mg/dL (0.60-1.20) L 10/24/17 01:03 BUN/Creatinine Ratio 38 (6-26) H 10/24/17 01:03 Calcium 8.0 mg/dL (8.6-10.3) L 10/24/17 01:03 Alkaline Phosphatase 200 Units/L (34-104) H 10/20/17 19:56 Creatine Kinase 374 Units/L (30-223) H 10/21/17 10:05 Lipase 9 Units/L (11-82) L 10/20/17 19:56 Urine Clarity Cloudy (Clear) A 10/20/17 20:44 Urine Protein 30 mg/dL (Neg-Trace) H 10/20/17 20:44 Urine Ketones Trace mg/dL (Negative) H 10/20/17 20:44 Ur Leukocyte Esterase Large (Negative) H 10/20/17 20:44 Urine Microscopic WBC TNTC per hpf (0-3) H 10/20/17 20:44 Ur Squamous Epith Cells Many per lpf (None-Few) H 10/20/17 20:44 Urine Bacteria Many per hpf (None-Few) H 10/20/17 20:44 Phenytoin 5.7 mcg/mL (10.0-20.0) L 10/20/17 19:56 General appearance: Present: no acute distress - Respiratory Respiratory exam: Present: decreased breath sounds, CTAB Additional comments: Shallow inspiratory effort - Cardiovascular Cardiovascular exam: Present: +S1, +S2 - GI/Abdominal GI/Abdominal exam: Present: normal bowel sounds, soft - Extremities Exam Additional comments: 1-2+ bilateral lower extremity edema - Neurological Exam Additional comments: Awake, eyes closed. Disoriented. Does not follow commands. Most speech not understandable - Skin Skin exam: Present: dry, warm Palliative Quality Palliative Quality: Screen for Code Status: Yes, Screen for Goals of Care: Yes, Screen for Pain: Yes, If Pain Regimen Started, Initiate Bowel Regimen: NA, Screen for Nausea/Vomitting: Yes Code Status: 10/21/17 15:37 CODE [Resuscitation Status: Active] [RES] Routine Comment: per alyssa Burks & Cedrick Blevins Resuscitation Status: [id number] - Labs CBC & Chem 7: 10/24/17 01:03 10/24/17 01:03 Labs: Laboratory Results - last 24 hr 10/24/17 10/24/17 01:03 01:03 WBC 10.6 RBC 3.72 L Hgb 11.7 Hct 34.6 L MCV 93.0 MCH 31.5 MCHC 33.8 RDW 13.2 Plt Count 203 MPV 9.7 Immature Gran % 0.4 Seg Neutrophils % 63.3 Lymphocytes % 22.0 Monocytes % 9.2 Eosinophils % 4.3 Basophils % 0.8 Neutrophils # 6.7 Lymphocytes # 2.3 Monocytes # 1.0 Eosinophils # 0.5 Basophils # 0.1 Sodium 139 Potassium 3.6 Chloride 108 H Carbon Dioxide 25 BUN 18 Creatinine 0.48 L Est GFR ( Amer) > 60 Est GFR (Non-Af Amer) > 60 BUN/Creatinine Ratio 38 H Glucose 105 Calculated Osmolality 290 Calcium 8.0 L - ABG Interpretation ABG results: PT/INR, D-dimer PT 12.3 Seconds (9.4-12.1) H 10/21/17 05:24 Consult Discharge Plan - Plan Referrals: Paradise Urena MD [Primary Care Provider] -
--- NOTE | 2017-10-24 10:50 | Internal Med Progress Note ---
<Niya Caba - Last Filed: 10/24/17 11:48> Hospitalist Progress Note - Encounter Date of Encounter: 10/24/17 Time of Encounter: 11:50 - Subjective Interval History: Ms. Blevins is an 82 y/o female with PMH of dementia and seizures presents to [facility] for a fall and left hip fracture. Patient remains arousable but not alert or oriented, She mumbles inappropriately- louder than yesterday. Verbal but not communicative. She is scratching at pelvic region. Altered so could not get appropriate ROS. - Exam Vitals: Temp Pulse Resp BP Pulse Ox 97.3 F L 81 20 157/85 95 10/24/17 06:56 10/24/17 06:56 10/24/17 06:56 10/24/17 06:56 10/24/17 06:56 Exam: General : pleasant, in no acute distress, A&Ox3 Cardiac: RRR no murmurs or gallop Respiratory: CTAB no wheeze or rales Abdomen: Soft, not distended, no tenderness, no masses or organomegaly Extremities: pulses intact, +1 pedal edema - Assessment and Plan (1) Closed left hip fracture Current Visit: Yes Status: Acute Assessment and Plan: Ortho consulted and advise that femoral neck fracture would typically require surgical intervention but she is not a good candidate. Family declined surgery and palliative consulted (2) UTI (urinary tract infection) Current Visit: Yes Status: Acute Assessment and Plan: WBC decrease to 10.6 from 12.4 - yestersday urine culture grew gram postive cocci - started vanc yesterday due to concern for MRSA - distant history of resistance with ESBL - today culture: no significant growth - discontinue vanc (3) Fall Current Visit: Yes Status: Acute Assessment and Plan: Unwitnessed fall of unknown etiology from chair or standing - CT head in ED no acute abnormality - no apparent injures other than hip fracture - EEG - family declined during goals of care discussion on Tuesday (4) Advanced dementia Current Visit: No Status: Chronic Assessment and Plan: continue aricept and seroquel (5) Seizure Current Visit: No Status: Chronic Assessment and Plan: Difficult to access due to advance dementia - Family declined an EEG - continue phenytoin (6) Vaginitis Current Visit: Yes Status: Acute Assessment and Plan: Likely candidasis due to white clump discharge - one dose of diflucan - her continued itching in pelvic region may be pruritus or behavior (7) Malnutrition Current Visit: Yes Status: Chronic Assessment and Plan: continue to feed by mouth with full assistance - palliative consulted DVT Prophylaxis: Lovenox - Summary of Assessment and Plan Summary of Assessment and Plan: Dispo: Awaiting placement based on family's decision - maybe later this week - Time Spent with Patient Total time spent is greater than 50% in coordination of care (as documented) at patient's floor/unit and/or counseling patient: Internal Medicine: Result - Labs CBC & Chem 7: 10/24/17 01:03 10/24/17 01:03 Labs: Short CBC 10/24/17 Range/Units 01:03 WBC 10.6 (4.3-11.1) K/mcL Hgb 11.7 (11.5-15.4) g/dL Hct 34.6 L (35.3-44.9) % Plt Count 203 (140-400) K/mcL Neutrophils # 6.7 (1.6-8.9) K/mcL BMP 10/24/17 01:03 Sodium 139 Potassium 3.6 Chloride 108 H Carbon Dioxide 25 BUN 18 Creatinine 0.48 L Glucose 105 Calcium 8.0 L - ABG Interpretation ABG results: PT/INR, D-dimer PT 12.3 Seconds (9.4-12.1) H 10/21/17 05:24 - VTE Documentation of Mechanical Device: Intermittent pneumatic compression device Consult Discharge Plan - Plan Referrals: Paradise Urena MD [Primary Care Provider] - <Driss Delgado - Last Filed: 10/24/17 15:31> Hospitalist Progress Note - Encounter Date of Encounter: 10/24/17 - Exam Vitals: Temp Pulse Resp BP Pulse Ox 97.3 F L 81 20 157/85 95 10/24/17 06:56 10/24/17 06:56 10/24/17 06:56 10/24/17 06:56 10/24/17 06:56 - Time Spent with Patient Total time spent is greater than 50% in coordination of care (as documented) at patient's floor/unit and/or counseling patient: Internal Medicine: Result - Labs CBC & Chem 7: 10/24/17 01:03 10/24/17 01:03 Labs: Short CBC 10/24/17 Range/Units 01:03 WBC 10.6 (4.3-11.1) K/mcL Hgb 11.7 (11.5-15.4) g/dL Hct 34.6 L (35.3-44.9) % Plt Count 203 (140-400) K/mcL Neutrophils # 6.7 (1.6-8.9) K/mcL BMP 10/24/17 01:03 Sodium 139 Potassium 3.6 Chloride 108 H Carbon Dioxide 25 BUN 18 Creatinine 0.48 L Glucose 105 Calcium 8.0 L - ABG Interpretation ABG results: PT/INR, D-dimer PT 12.3 Seconds (9.4-12.1) H 10/21/17 05:24 - Attending Attestation examined this patient and my medical decision-making was reviewed with the Resident Physician Dr. Caba. I agree with the documented findings, disposition and treatment plan as described except to the extent set forth below. Ms. Blevins is a 82 year old female with PMH of dementia, hyperlipidemia, hypertension, seizures pt was brought into ER by family stating pt had a fall at home and down for [address] showed no acute intracranial abnormality, chest x-ray showed no abnormalities. Hip x-ray showed acute displaced subcapital left femoral neck fracture. Now pt resting comfortably. She is more alert today. No events over night Gen: alert, awake and demented Chest: Diminished BS Heart: S1S2+ Ext: mild tenderness in left, no swelling / no laceration a/p 1. Acute fall with acute displaced subcapital left femoral neck fracture Orhto consulted family do not wanted to proceed with surgery palliative care consulted 2. chronic seizure no active seizure cont home meds for now 3. Advanced dementia on Haldol PRN for agitation 4. Failure to thrive due to # 3 5. Moderate PCM Cipher Expert consulted 6. Vaginal yeast infection Diflucan x 1 dose given y/d <Niya Caba - Last Filed: 10/24/17 11:48> (1) Closed left hip fracture Qualifiers: Encounter type: initial encounter Qualified Code(s): S72.002A - Fracture of unspecified part of neck of left femur, initial encounter for closed fracture (2) UTI (urinary tract infection) Qualifiers: Urinary tract infection type: site unspecified Hematuria presence: without hematuria Qualified Code(s): N39.0 - Urinary tract infection, site not specified (3) Fall Qualifiers: Encounter type: initial encounter Qualified Code(s): W19.XXXA - Unspecified fall, initial encounter (7) Malnutrition Qualifiers: Protein-calorie malnutrition severity: unspecified severity
[2017-10-24] MEDS: *HR* Enoxaparin 40 MG/0.4 ML SYRINGE SQ SCH (18:09)
[2017-10-24] MEDS: Phenytoin Oral Susp 100 MG/4 ML UDC PO SCH (20:34)
[2017-10-25] MEDS: amLODIPine 5 MG TABLET PO SCH (10:26)
[2017-10-25] MEDS: Docusate Oral Soln 100 MG/10 ML UDC PO SCH (10:26)
[2017-10-25 13:42] VITALS: BP 114/73
--- NOTE | 2017-10-25 15:58 | Physician Discharge Referral ---
ExtendedCare Referral Info Institutional Level of Care: Intermediate - Transfer Medications Prescriptions: OXYCODONE Oral CONC [Oxycodone Oral Conc] 5 mg PO Q4H PRN 7 Days #30 oral.syg PRN Reason: Pain Home Medications: Donepezil [Aricept] 10 mg PO BID #0 10/25/14 [History] Omeprazole [PriLOSEC] 40 mg PO BID #0 10/25/14 [History] Quetiapine Fumarate [Seroquel] 50 mg PO BID 10/25/14 [History] Amlodipine [Norvasc] 10 mg PO DAILY #30 tablet 11/07/14 [Rx] Furosemide [Lasix] 20 mg PO DAILY PRN 08/04/15 [History] Phenytoin ER [Dilantin ER] 300 mg PO HS 10/20/17 [History] OXYCODONE Oral CONC [Oxycodone Oral Conc] 5 mg PO Q4H PRN 7 Days #30 oral.syg [Rx] Allergies/Adverse Reactions: 3 Allergy/AdvReac Type Severity Reaction Status Date / Time Penicillins Allergy Rash Verified 08/12/15 16:34 - Respiratory Orders Smoking Cessation: Smoking cessation has been advised. For more information, call the [place] Tobacco Quit Line at 5-346-ZGXONOW. CERTIFICATION: I certify that the transfer of the above named patient to an Extended Care Facility is necessary for the continuing treatment of the diagnosis listed. The above information is true and accurate reflection of patient's current condition. Confidential - Redisclosure prohibited without a patient's written consent.
--- NOTE | 2017-10-25 15:58 | Discharge Summary ---
- NOTES TO OUTPATIENT PROVIDER Notes to Outpatient Provider: none Date of Encounter: 10/25/17 Time of Encounter: 11:00 Hospital course: Patient is an 82-year-old female with past medical history significant for hypertension, hyperlipidemia and seizures who presents to the ER on 10/21/17 with left leg/hip pain status post fall. In the ER, x-ray of the hip showed acute displaced subcapital left femoral neck fracture; CT of the head showed no acute intracranial abnormalities. She was admitted to the medical surgical floor for further management and evaluation. During patients hospital stay, orthopedics was consulted with recommendations for medical management. Recommendations for patient to be discharged to snf facility for strengthening and conditioning. Patient is medically stable to be discharged to snf facility. - Time Spent with Patient Total time spent providing and/or coordinating discharge services: - Discharge Medications Prescriptions: OXYCODONE Oral CONC [Oxycodone Oral Conc] 5 mg PO Q4H PRN 7 Days #30 oral.syg PRN Reason: Pain Home Medications: Donepezil [Aricept] 10 mg PO BID #0 10/25/14 [History] Omeprazole [PriLOSEC] 40 mg PO BID #0 10/25/14 [History] Quetiapine Fumarate [Seroquel] 50 mg PO BID 10/25/14 [History] Amlodipine [Norvasc] 10 mg PO DAILY #30 tablet 11/07/14 [Rx] Furosemide [Lasix] 20 mg PO DAILY PRN 08/04/15 [History] Phenytoin ER [Dilantin ER] 300 mg PO HS 10/20/17 [History] OXYCODONE Oral CONC [Oxycodone Oral Conc] 5 mg PO Q4H PRN 7 Days #30 oral.syg [Rx] Allergies/Adverse Reactions: 3 Allergy/AdvReac Type Severity Reaction Status Date / Time Penicillins Allergy Rash Verified 08/12/15 16:34 Date of admission: 10/21/17 15:32 Primary care physician: Paradise Urena MD Consults: 10/21/17 15:42 Consult to [facility] [CONS] Routine Reason for SW Consult: family considering hospice care- currently has home health 10/21/17 15:58 Consult to Palliative Care [CONS] Routine Comment: Consulting Provider: [facility] [place] Reason for Consult: considering hospice after hip fx Call Completed: Yes - Constitutional Vitals: Temp Pulse Resp BP Pulse Ox 97.6 F 91 16 114/73 96 10/25/17 11:00 10/25/17 11:00 10/25/17 11:00 10/25/17 11:00 10/25/17 11:00 General appearance: Present: no acute distress. Absent: cooperative, answers questions appropriately - Cardiovascular Cardiovascular exam: Present: RRR, +S1, +S2. Absent: diastolic murmur, gallop, rubs, systolic murmur - Patient Status Disposition: Hospice - Medical Facility Condition: Good - Discharge Instructions Follow Up With: Paradise Urena MD [Primary Care Provider] - - VTE Documentation of Mechanical Device: Intermittent pneumatic compression device
[2017-10-25] MEDS: *HR* Enoxaparin 40 MG/0.4 ML SYRINGE SQ SCH (16:25)
== END 2017-10-25 17:36 | disposition hospice, inpatient (51) | DRG 536 ==
LOC: 3NENU 18:40 → EMEROO 18:40 → 3NENU 21:51 → SUATTDRO 10-21 15:32
PROVIDERS: ADMIT Internal Medicine; ATTEND Hospitalist